=== PATIENT | male | born 1935 | race Caucasian/White ===

== ENCOUNTER 2019-08-07 12:38 | Outpatient (CLI) | payer OTHER, SELFPAY ==
[2019-08-07 13:06] LABS: Add Urine Microscopic? YES; Appearance Urine Clear (Clear); Bilirubin Urine Negative (Negative); Blood Urine Negative (Negative); Color Urine Yellow (Yellow); Glucose Urine UA Negative (Negative); Ketones Urine Trace mg/dL (Negative); Leukocyte Esterase Ur Negative LEU/UL (Negative); Mucus Urine Rare /lpf; Nitrate Urine Negative (Negative); Protein Urine 2+ mg/dL (Negative); RBC Urine 0-2 /hpf (0-2); Specific Grav Ur 1.025 (1.001-1.035); Squamous Epithelial Cell Urine Rare /hpf (Few); Urobilinogen Urine Negative mg/dL (<2.0); WBC Urine 0-3 /hpf
[2019-08-07 13:10] LABS: Creatinine Urine 263.6 mg/dL; Total Protein Urine Random 20 mg/dL
[2019-08-07 13:16] LABS: Albumin Level 4.4 g/dL (3.5-5.1); Blood Urea Nitrogen 35 mg/dL (9-20); Calcium 9.3 mg/dL (8.4-10.2); Carbon Dioxide 25 mmol/L (22-30); Chloride 105 mmol/L (98-107); Estimated Glomerular Filt Rate 32; Glucose 120 mg/dL (75-110); Phosphorus 3.7 mg/dL (2.5-4.5); Potassium 4.9 mmol/L (3.4-5.0); Sodium 137 mmol/L (137-145)
== END 2019-08-07 12:39 | disposition home or self-care (01) ==
PROVIDERS: PCP Internal Medicine; Visit Provider Internal Medicine Nephrology
DX: N18.3 Chronic kidney disease, stage 3 (moderate) (principal)
CPT/HCPCS: 36415; 80069; 81001; 82570; 84156

== ENCOUNTER 2019-09-28 07:53 | Outpatient (CLI) | payer OTHER, SELFPAY ==
[2019-09-28 08:37] LABS: Alanine Aminotransferase 26 U/L (4-50); Albumin Level 4.4 g/dL (3.5-5.1); Alkaline Phosphatase 56 U/L (38-126); Aspartate Amino Transferase 35 U/L (17-59); Bilirubin,Total 0.3 mg/dL (0.2-1.3); Blood Urea Nitrogen 31 mg/dL (9-20); Calcium 9.2 mg/dL (8.4-10.2); Carbon Dioxide 26 mmol/L (22-30); Chloride 105 mmol/L (98-107); Cholesterol 124 mg/dL (0-200); Estimated Glomerular Filt Rate 34; Glucose 121 mg/dL (75-110); HDL Direct 31 mg/dL; Potassium 4.6 mmol/L (3.4-5.0); Sodium 140 mmol/L (137-145); Triglycerides 130 mg/dL (<150); Uric Acid 4.6 mg/dL (3.5-8.5)
[2019-09-28 08:50] LABS: LDL Cholesterol Direct 66 mg/dL
[2019-09-28 08:58] LABS: Hemoglobin A1C 6.5 % (<5.7)
[2019-09-28 11:00] LABS: Creatinine Urine 246.4 mg/dL
[2019-09-28 11:04] LABS: MALB Creatinine Ratio 22.2 mg/g (0-30); Microalbumin Urine Random 54.7 mg/L (0-16.7)
== END 2019-09-28 07:54 | disposition home or self-care (01) ==
PROVIDERS: PCP Internal Medicine; Visit Provider Internal Medicine
DX: M1A.9XX0 Chronic gout, unspecified, without tophus (tophi) (principal); E11.22 Type 2 diabetes mellitus with diabetic chronic kidney disease; N18.3 Chronic kidney disease, stage 3 (moderate); E78.2 Mixed hyperlipidemia
CPT/HCPCS: 36415; 80053; 80061; 82043; 83036; 84550

== ENCOUNTER 2019-12-14 11:56 | Outpatient (CLI) | payer OTHER, SELFPAY ==
[2019-12-14 12:31] LABS: Hematocrit 42.4 % (42.0-52.0); Hemoglobin 13.9 g/dL (14.0-18.0); Mean Corpuscular HGB Conc 32.8 g/dl (32-36); Mean Corpuscular Volume 97.7 fl (80-100); Mean Platelet Volume 10.5 fl (7.4-10.4); Platelet Count Result 202 k/mm3 (150-375); Red Blood Count 4.34 M/mm3 (4.6-6.20); Red Cell Distribution Width 14.1 % (11.5-14.5); White Blood Count 8.7 K/mm3 (4.5-10.0)
[2019-12-14 12:39] LABS: Creatinine Urine 87.6 mg/dL; Total Protein Urine Random 14 mg/dL
[2019-12-14 12:43] LABS: Albumin Level 4.5 g/dL (3.5-5.1); Anion Gap 14.8 mmol/L (7-16); Blood Urea Nitrogen 29 mg/dL (9-20); Calcium 9.3 mg/dL (8.4-10.2); Carbon Dioxide 27 mmol/L (22-30); Chloride 101 mmol/L (98-107); Estimated Glomerular Filt Rate 39; Glucose 141 mg/dL (75-110); Potassium 4.8 mmol/L (3.4-5.0); Sodium 138 mmol/L (137-145)
[2019-12-14 12:54] LABS: Parathyroid Intact 38.8 pg/mL (7.5-53.5)
[2019-12-14 13:19] LABS: Vitamin D 25 Hydroxy 95.5 ng/mL
== END 2019-12-14 11:57 | disposition home or self-care (01) ==
PROVIDERS: PCP Internal Medicine; Visit Provider Internal Medicine Nephrology
DX: N18.3 Chronic kidney disease, stage 3 (moderate) (principal)
CPT/HCPCS: 36415; 80069; 82306; 82570; 83970; 84156; 85027

== ENCOUNTER 2019-12-18 07:38 | Outpatient (CLI) | payer OTHER, SELFPAY ==
[2019-12-18 08:34] LABS: Alanine Aminotransferase 28 U/L (4-50); Albumin Level 4.3 g/dL (3.5-5.1); Alkaline Phosphatase 53 U/L (38-126); Anion Gap 12.5 mmol/L (7-16); Aspartate Amino Transferase 37 U/L (17-59); Bilirubin,Total 0.3 mg/dL (0.2-1.3); Blood Urea Nitrogen 35 mg/dL (9-20); Calcium 9.1 mg/dL (8.4-10.2); Carbon Dioxide 23 mmol/L (22-30); Chloride 106 mmol/L (98-107); Estimated Glomerular Filt Rate 39; Glucose 137 mg/dL (75-110); Potassium 4.5 mmol/L (3.4-5.0); Sodium 137 mmol/L (137-145)
[2019-12-18 10:17] LABS: Creatinine Urine 162.8 mg/dL
[2019-12-18 10:21] LABS: MALB Creatinine Ratio 11.6 mg/g (0-30); Microalbumin Urine Random 18.9 mg/L (0-16.7)
== END 2019-12-18 07:39 | disposition home or self-care (01) ==
PROVIDERS: PCP Internal Medicine; Visit Provider Internal Medicine
DX: E11.22 Type 2 diabetes mellitus with diabetic chronic kidney disease (principal); N18.3 Chronic kidney disease, stage 3 (moderate)
CPT/HCPCS: 36415; 80053; 82043; 83036

== ENCOUNTER 2020-06-03 09:01 | Outpatient (CLI) | payer OTHER, SELFPAY ==
--- NOTE | ~2020-06-03 | XR_ITS ---
EXAMINATION: XR abdomen/kub 1V DATE: 06/03/2020 09:30 INDICATION: Renal calculus. TECHNIQUE: A supine view of the abdomen on 2 radiographs was obtained. COMPARISON: None. FINDINGS: Normal bowel gas pattern. Similar pattern of vascular calcifications and phleboliths in the pelvis. N o interval change in a couple thin linear and curvilinear calcific densities project over the lower p ole of left kidney each measuring approximately 4 mm in maximal dimension which could represent eithe r renal stones or vascular calcifications. Suture line in the right lower quadrant. Mild lumbar dextr ocurvature with moderate spondylosis. IMPRESSION: 1. No interval change in a couple thin linear and curvilinear calcifications at the lower pole of the left kidney which could represent renal stones or vascular calcifications. Reviewed, dictated and finalized at location A. [employer] IMPRESSION: 1. No interval change in a couple thin linear and curvilinear calcifications at the lower pole of the left kidney which could represent renal stones or vascul ar calcifications.
[2020-06-03 10:17] LABS: Albumin Level 4.2 g/dL (3.5-5.1); Anion Gap 3 mmol/L (8-16); Blood Urea Nitrogen 27 mg/dL (9-20); Calcium 9.1 mg/dL (8.4-10.2); Carbon Dioxide 31 mmol/L (22-30); Chloride 104 mmol/L (98-107); Estimated Glomerular Filt Rate 36; Glucose 91 mg/dL (75-110); Phosphorus 3.2 mg/dL (2.5-4.5); Potassium 4.3 mmol/L (3.4-5.0); Sodium 138 mmol/L (137-145)
[2020-06-03 10:18] LABS: Creatinine Urine 153.2 mg/dL; Total Protein Urine Random 14 mg/dL; Ur Ttl Prot Creatinine Ratio 0.09 mg/mg (0-0.20)
[2020-06-03 10:29] LABS: Parathyroid Intact 43.8 pg/mL (7.5-53.5)
[2020-06-03 15:12] LABS: Vitamin D 25 Hydroxy 65.2 ng/mL
== END 2020-06-03 09:02 | disposition home or self-care (01) ==
LOC: ANHIMG 09:10
PROVIDERS: PCP Internal Medicine; Visit Provider Internal Medicine Nephrology
DX: N20.0 Calculus of kidney (principal); N18.30 Chronic kidney disease, stage 3 unspecified
CPT/HCPCS: 36415; 74018; 80069; 82306; 82570; 83970; 84156; 84550

== ENCOUNTER 2020-06-17 09:14 | Outpatient (CLI) | payer OTHER, SELFPAY ==
[2020-06-17 11:57] LABS: Hemoglobin A1C 6.2 % (<5.7)
== END 2020-06-17 09:15 | disposition home or self-care (01) ==
PROVIDERS: PCP Internal Medicine; Visit Provider Internal Medicine
DX: E11.22 Type 2 diabetes mellitus with diabetic chronic kidney disease (principal); I12.9 Hypertensive chronic kidney disease with stage 1 through stage 4 chronic kidney disease, or unspecified chronic kidney disease; N18.30 Chronic kidney disease, stage 3 unspecified
CPT/HCPCS: 36415; 83036; 84443

== ENCOUNTER 2020-08-04 16:01 | Outpatient (CLI) | payer OTHER, SELFPAY ==
[2020-08-04 16:39] LABS: Alanine Aminotransferase 29 U/L (4-50); Aspartate Amino Transferase 36 U/L (17-59)
== END 2020-08-04 16:02 | disposition home or self-care (01) ==
PROVIDERS: PCP Internal Medicine; Visit Provider Podiatrist Foot & Ankle Surgery
DX: B35.1 Tinea unguium (principal)
CPT/HCPCS: 36415; 84450; 84460

== ENCOUNTER 2020-12-09 11:42 | Outpatient (CLI) | payer OTHER, SELFPAY ==
[2020-12-09 12:15] LABS: Hematocrit 36.8 % (42.0-52.0); Mean Corpuscular HGB Conc 32.6 g/dl (32-36); Mean Corpuscular Hemoglobin 31.9 pg (26-34); Mean Corpuscular Volume 97.9 fl (80-100); Mean Platelet Volume 10.1 fl (7.4-10.4); Platelet Count Result 181 k/mm3 (150-375); Red Blood Count 3.76 M/mm3 (4.6-6.20); Red Cell Distribution Width 14.1 % (11.5-14.5); White Blood Count 8.3 K/mm3 (4.5-10.0)
[2020-12-09 12:21] LABS: Creatinine Urine 42.3 mg/dL; Total Protein Urine Random 22 mg/dL; Ur Ttl Prot Creatinine Ratio 0.52 mg/mg (0-0.20)
[2020-12-09 12:25] LABS: Albumin Level 4.6 g/dL (3.5-5.1); Anion Gap 12 mmol/L (8-16); Blood Urea Nitrogen 40 mg/dL (9-20); Calcium 9.2 mg/dL (8.4-10.2); Carbon Dioxide 21 mmol/L (22-30); Chloride 107 mmol/L (98-107); Estimated Glomerular Filt Rate 22; Glucose 128 mg/dL (65-110); Phosphorus 3.4 mg/dL (2.5-4.5); Potassium 4.7 mmol/L (3.4-5.0); Sodium 140 mmol/L (137-145)
[2020-12-09 12:36] LABS: Parathyroid Intact 65.9 pg/mL (7.5-53.5)
== END 2020-12-09 11:43 | disposition home or self-care (01) ==
LOC: ANHLAB 11:45
PROVIDERS: PCP Internal Medicine; Visit Provider Internal Medicine Nephrology
DX: N18.32 Chronic kidney disease, stage 3b (principal)
CPT/HCPCS: 36415; 80069; 82570; 83970; 84156; 85027

== ENCOUNTER 2020-12-24 10:47 | Outpatient (CLI) | payer OTHER, SELFPAY ==
[2020-12-24 11:52] LABS: Add Urine Microscopic? YES; Appearance Urine Clear (Clear); Bilirubin Urine Negative (Negative); Blood Urine Negative (Negative); Color Urine Yellow (Yellow); Glucose Urine UA Negative (Negative); Ketones Urine Negative (Negative); Leukocyte Esterase Ur Negative LEU/UL (NEGATIVE); Nitrate Urine Negative (Negative); Protein Urine 1+ mg/dL (Negative); RBC Urine 0-2 /hpf (0-2); Specific Grav Ur 1.015 (1.001-1.035); Urobilinogen Urine Negative mg/dL (<2.0); WBC Urine 0-3 /hpf (0-3)
[2020-12-24 12:00] LABS: Albumin Level 4.4 g/dL (3.5-5.1); Anion Gap 10 mmol/L (8-16); Blood Urea Nitrogen 37 mg/dL (9-20); Calcium 9.3 mg/dL (8.4-10.2); Carbon Dioxide 23 mmol/L (22-30); Chloride 107 mmol/L (98-107); Creatine Kinase 243 U/L (55-170); Estimated Glomerular Filt Rate 22; Glucose 130 mg/dL (65-110); Phosphorus 3.5 mg/dL (2.5-4.5); Potassium 4.6 mmol/L (3.4-5.0); Sodium 140 mmol/L (137-145)
[2020-12-24 22:15] LABS: Creatinine Urine 114.2 mg/dL
[2020-12-24 22:34] LABS: Sodium Urine Random 54 meq/L
== END 2020-12-24 10:48 | disposition home or self-care (01) ==
PROVIDERS: PCP Internal Medicine; Visit Provider Internal Medicine Nephrology
DX: N18.32 Chronic kidney disease, stage 3b (principal)
CPT/HCPCS: 36415; 80069; 81001; 82550; 82570; 84300

== ENCOUNTER 2020-12-25 07:51 | Outpatient (CLI) | payer OTHER, SELFPAY ==
[2020-12-25 09:01] LABS: Hematocrit 36.6 % (42.0-52.0); Hemoglobin 12.1 g/dL (14.0-18.0); Mean Corpuscular HGB Conc 33.1 g/dl (32-36); Mean Corpuscular Hemoglobin 32.4 pg (26-34); Mean Corpuscular Volume 97.9 fl (80-100); Mean Platelet Volume 10.3 fl (7.4-10.4); Platelet Count Result 190 k/mm3 (150-375); Red Blood Count 3.74 M/mm3 (4.6-6.20); Red Cell Distribution Width 13.6 % (11.5-14.5); White Blood Count 8.6 K/mm3 (4.5-10.0)
[2020-12-25 09:10] LABS: Hemoglobin A1C 6.3 % (<5.7)
[2020-12-25 10:43] LABS: Alanine Aminotransferase 34 U/L (4-50); Albumin Level 4.4 g/dL (3.5-5.1); Alkaline Phosphatase 60 U/L (38-126); Anion Gap 10 mmol/L (8-16); Aspartate Amino Transferase 44 U/L (17-59); Bilirubin,Total 0.5 mg/dL (0.2-1.3); Blood Urea Nitrogen 38 mg/dL (9-20); Calcium 9.4 mg/dL (8.4-10.2); Carbon Dioxide 20 mmol/L (22-30); Chloride 109 mmol/L (98-107); Estimated Glomerular Filt Rate 24; Glucose 124 mg/dL (65-110); Potassium 4.8 mmol/L (3.4-5.0); Sodium 139 mmol/L (137-145)
[2020-12-25 11:00] LABS: Creatinine Urine 109.3 mg/dL
[2020-12-25 11:04] LABS: MALB Creatinine Ratio 51.3 mg/g (0-30); Microalbumin Urine Random 56.1 mg/L (0-16.7)
[2020-12-25 12:00] LABS: Folic Acid > 20.0 ng/mL (2.76->20)
== END 2020-12-25 07:52 | disposition home or self-care (01) ==
LOC: ANHLAB 07:52
PROVIDERS: PCP Internal Medicine; Visit Provider Internal Medicine
DX: D64.9 Anemia, unspecified (principal); E11.22 Type 2 diabetes mellitus with diabetic chronic kidney disease; I12.9 Hypertensive chronic kidney disease with stage 1 through stage 4 chronic kidney disease, or unspecified chronic kidney disease; N18.30 Chronic kidney disease, stage 3 unspecified
CPT/HCPCS: 36415; 80053; 82043; 82607; 82746; 83036; 85027

== ENCOUNTER 2021-01-02 13:50 | Outpatient (CLI) | payer OTHER, SELFPAY ==
--- NOTE | ~2021-01-02 | US_ITS ---
EXAMINATION: US arterial ankle brachial ind DATE: 01/02/2021 15:29 INDICATION: Diabetic with hypercholesterolemia presenting with decreased pulses in the lower limbs. TECHNIQUE: Segmental pressures and plethysmographic and Doppler waveforms of the brachial and lower e xtremity arteries were obtained. COMPARISON: None. FINDINGS: Right and left brachial artery pressures of 97 mm Hg and 98 mm Hg, respectively, are concordant (norm al difference <= 30 mmHg). The right ankle-brachial index (CINDY) is 1.62 (normal >= 0.9-1.0). The right great toe-brachial index (TBI) is 0.95 (normal >= 0.65). Arterial Doppler waveforms are biphasic with brisk systolic upstrokes at both the right posterior tibial and dorsalis pedis arteries. The left CINDY is 1.56. The left TBI is 0.84. Arterial Doppler waveforms are biphasic with brisk systol ic upstrokes of both the left posterior tibial and dorsalis pedis arteries. IMPRESSION: 1. No significant arterial occlusive disease to either lower limb with normal bilateral ABIs and TBI' s. Reviewed, dictated and finalized at location A. IMPRESSION: 1. No significant arterial occlusive disease to either lower limb with normal b ilateral ABIs and TBI's.
== END 2021-01-02 13:51 | disposition home or self-care (01) ==
PROVIDERS: PCP Internal Medicine; Visit Provider Internal Medicine
DX: R09.89 Other specified symptoms and signs involving the circulatory and respiratory systems (principal)
CPT/HCPCS: 93922

== ENCOUNTER → 2021-01-06 02:44 | Outpatient (CLI) | payer OTHER, SELFPAY ==
[2021-01-06 19:41] LABS: SARS-CoV-2 RNA PCR Negative
== END ==
PROVIDERS: PCP Internal Medicine; Visit Provider Internal Medicine
DX: R68.89 Other general symptoms and signs (principal); Z20.822 Contact with and (suspected) exposure to COVID-19
CPT/HCPCS: C9803; U0003; U0005

== ENCOUNTER 2021-01-13 16:52 | Outpatient (CLI) | payer OTHER, SELFPAY ==
--- NOTE | ~2021-01-13 | US_ITS ---
EXAMINATION: US renal BI DATE: 01/13/2021 17:21 INDICATION: Chronic kidney disease. TECHNIQUE: Multiple ultrasound grayscale images of the kidneys were obtained. COMPARISON: Ultrasound 02/14/2019 FINDINGS: The right kidney measures 10.0 x 5.3 x 5.0 cm. The left kidney measures 9.8 x 4.7 x 5.1 cm. The kidne ys demonstrate normal parenchymal echogenicity. There are cysts in the kidneys measuring up to 10 mm on the right. There is no hydronephrosis. The bladder is normal. The prostate is enlarged. IMPRESSION: 1. Normal kidney sizes. No hydronephrosis. Reviewed, dictated and finalized at location A.
== END 2021-01-13 16:53 | disposition home or self-care (01) ==
PROVIDERS: PCP Internal Medicine; Visit Provider Internal Medicine Nephrology
DX: N18.30 Chronic kidney disease, stage 3 unspecified (principal)
CPT/HCPCS: 76775

== ENCOUNTER 2021-04-04 11:11 | Outpatient (CLI) | payer OTHER, SELFPAY ==
[2021-04-04 12:25] LABS: Hematocrit 39.2 % (42.0-52.0); Hemoglobin 13.3 g/dL (14.0-18.0); Mean Corpuscular HGB Conc 33.9 g/dl (32-36); Mean Corpuscular Volume 97.3 fl (80-100); Mean Platelet Volume 10.3 fl (7.4-10.4); Platelet Count Result 204 k/mm3 (150-375); Red Blood Count 4.03 M/mm3 (4.6-6.20); Red Cell Distribution Width 12.8 % (11.5-14.5); White Blood Count 8.8 K/mm3 (4.5-10.0)
[2021-04-04 12:37] LABS: Albumin Level 4.4 g/dL (3.5-5.1); Anion Gap 10 mmol/L (8-16); Blood Urea Nitrogen 40 mg/dL (9-20); Calcium 9.3 mg/dL (8.4-10.2); Carbon Dioxide 26 mmol/L (22-30); Chloride 103 mmol/L (98-107); Estimated Glomerular Filt Rate 27; Glucose 122 mg/dL (65-110); Phosphorus 3.8 mg/dL (2.5-4.5); Potassium 4.7 mmol/L (3.4-5.0); Sodium 139 mmol/L (137-145)
[2021-04-04 12:39] LABS: Creatinine Urine 142.3 mg/dL; Total Protein Urine Random 18 mg/dL; Ur Ttl Prot Creatinine Ratio 0.13 mg/mg (0-0.20)
[2021-04-04 12:48] LABS: Parathyroid Intact 57.3 pg/mL (7.5-53.5)
== END 2021-04-04 11:12 | disposition home or self-care (01) ==
LOC: ANHLAB 11:16
PROVIDERS: PCP Internal Medicine; Visit Provider Internal Medicine Nephrology
DX: N18.32 Chronic kidney disease, stage 3b (principal)
CPT/HCPCS: 36415; 80069; 82570; 83970; 84156; 85027

== ENCOUNTER 2021-06-30 08:27 | Outpatient (CLI) | payer OTHER, SELFPAY ==
[2021-06-30 09:16] LABS: Basophils Absolute Auto 0.1 K/mm3 (0.0-0.1); Basophils Percent Auto 0.5 % (0.2-1.2); Eosinophils Absolute Auto 0.2 K/mm3 (0-0.3); Eosinophils Percent Auto 2.5 % (0-4.4); Hematocrit 43.6 % (42.0-52.0); Hemoglobin 14.2 g/dL (14.0-18.0); Immature Granulocyte Absolute 0.03 K/mm3 (0.00-0.031); Immature Granulocyte Percent A 0.3 % (0-0.5); Lymphocytes Absolute Auto 2.31 K/mm3 (0.9-3.2); Lymphocytes Percent Auto 24.1 % (18.3-44.2); Mean Corpuscular HGB Conc 32.6 g/dl (32-36); Mean Corpuscular Hemoglobin 32.1 pg (26-34); Mean Corpuscular Volume 98.4 fl (80-100); Mean Platelet Volume 10.6 fl (7.4-10.4); Monocytes Absolute Auto 0.6 K/mm3 (0.1-0.6); Monocytes Percent Auto 6.6 % (2.6-8.5); Neutrophils Absolute Auto 6.3 K/mm3 (1.3-6.7); Platelet Count Result 192 k/mm3 (150-375); Red Blood Count 4.43 M/mm3 (4.6-6.20); Red Cell Distribution Width 13.5 % (11.5-14.5); White Blood Count 9.6 K/mm3 (4.5-10.0)
[2021-06-30 09:35] LABS: Hemoglobin A1C 7.1 % (<5.7)
[2021-06-30 09:38] LABS: LDL Cholesterol Direct 65 mg/dL
[2021-06-30 09:47] LABS: Alanine Aminotransferase 31 U/L (4-50); Albumin Level 4.5 g/dL (3.5-5.1); Alkaline Phosphatase 67 U/L (38-126); Anion Gap 10 mmol/L (8-16); Aspartate Amino Transferase 37 U/L (17-59); Bilirubin,Total 0.6 mg/dL (0.2-1.3); Blood Urea Nitrogen 35 mg/dL (9-20); Calcium 8.9 mg/dL (8.4-10.2); Carbon Dioxide 26 mmol/L (22-30); Chloride 105 mmol/L (98-107); Cholesterol 147 mg/dL (0-200); Estimated Glomerular Filt Rate 22; Glucose 175 mg/dL (65-110); HDL Direct 31 mg/dL; Potassium 4.8 mmol/L (3.4-5.0); Sodium 141 mmol/L (137-145); Triglycerides 302 mg/dL (<150)
[2021-06-30 09:56] LABS: Vitamin D 25 Hydroxy 59.1 ng/mL
[2021-06-30 10:44] LABS: Creatinine Urine 206.6 mg/dL
[2021-06-30 10:45] LABS: MALB Creatinine Ratio 36.6 mg/g (0-30); Microalbumin Urine Random 75.6 mg/L (0-16.7)
== END 2021-06-30 08:28 | disposition home or self-care (01) ==
LOC: ANHLAB 08:29
PROVIDERS: PCP Internal Medicine; Visit Provider Internal Medicine
DX: E11.22 Type 2 diabetes mellitus with diabetic chronic kidney disease (principal); D64.9 Anemia, unspecified; E11.69 Type 2 diabetes mellitus with other specified complication; E53.8 Deficiency of other specified B group vitamins; E78.2 Mixed hyperlipidemia; I12.9 Hypertensive chronic kidney disease with stage 1 through stage 4 chronic kidney disease, or unspecified chronic kidney disease; N18.30 Chronic kidney disease, stage 3 unspecified
CPT/HCPCS: 36415; 80053; 80061; 82043; 82306; 83036; 83970; 84443; 85025

== ENCOUNTER 2021-07-13 09:48 | Outpatient (CLI) | payer OTHER, SELFPAY ==
[2021-07-13 10:27] LABS: Anion Gap 10 mmol/L (8-16); Blood Urea Nitrogen 41 mg/dL (9-20); Calcium 8.8 mg/dL (8.4-10.2); Carbon Dioxide 24 mmol/L (22-30); Chloride 105 mmol/L (98-107); Estimated Glomerular Filt Rate 25; Glucose 107 mg/dL (65-110); Potassium 4.9 mmol/L (3.4-5.0); Sodium 139 mmol/L (137-145)
== END 2021-07-13 09:49 | disposition home or self-care (01) ==
PROVIDERS: PCP Internal Medicine; Visit Provider Internal Medicine
DX: N18.32 Chronic kidney disease, stage 3b (principal)
CPT/HCPCS: 36415; 80048

== ENCOUNTER → 2021-07-23 02:18 | Outpatient (CLI) | payer OTHER, SELFPAY ==
[2021-07-23 11:06] LABS: Influenza A QL RT-PCR Negative (Negative); Influenza B QL RT-PCR Negative (Negative); SARS-CoV-2 RNA PCR Negative
== END ==
PROVIDERS: PCP Internal Medicine; Visit Provider Internal Medicine
DX: R68.89 Other general symptoms and signs (principal); Z20.822 Contact with and (suspected) exposure to COVID-19
CPT/HCPCS: 87502; C9803; U0003; U0005

== ENCOUNTER 2021-09-16 14:21 | Outpatient (CLI) | payer OTHER, SELFPAY ==
[2021-09-16 15:18] LABS: Hematocrit 40.4 % (42.0-52.0); Mean Corpuscular HGB Conc 32.2 g/dl (32-36); Mean Corpuscular Hemoglobin 32.2 pg (26-34); Mean Platelet Volume 10.3 fl (7.4-10.4); Platelet Count Result 176 k/mm3 (150-375); Red Blood Count 4.04 M/mm3 (4.6-6.20); Red Cell Distribution Width 13.4 % (11.5-14.5); White Blood Count 8.7 K/mm3 (4.5-10.0)
[2021-09-16 15:37] LABS: Albumin Level 4.1 g/dL (3.5-5.1); Anion Gap 7 mmol/L (8-16); Blood Urea Nitrogen 46 mg/dL (9-20); Calcium 8.8 mg/dL (8.4-10.2); Carbon Dioxide 27 mmol/L (22-30); Chloride 101 mmol/L (98-107); Estimated Glomerular Filt Rate 26; Glucose 129 mg/dL (65-110); Phosphorus 3.9 mg/dL (2.5-4.5); Potassium 4.5 mmol/L (3.4-5.0); Sodium 135 mmol/L (137-145)
[2021-09-16 15:49] LABS: Parathyroid Intact 77.1 pg/mL (7.5-53.5)
[2021-09-16 16:07] LABS: Creatinine Urine 51.4 mg/dL; Total Protein Urine Random 12 mg/dL; Ur Ttl Prot Creatinine Ratio 0.23 mg/mg (0-0.20)
== END 2021-09-16 14:22 | disposition home or self-care (01) ==
LOC: ANHLAB 14:37
PROVIDERS: PCP Internal Medicine; Visit Provider Internal Medicine Nephrology
DX: N18.4 Chronic kidney disease, stage 4 (severe) (principal); R80.1 Persistent proteinuria, unspecified
CPT/HCPCS: 36415; 80069; 82570; 83970; 84156; 85027

== ENCOUNTER 2021-10-09 11:42 | Outpatient (CLI) | payer OTHER, SELFPAY ==
[2021-10-09 13:24] LABS: Alanine Aminotransferase 52 U/L (6-50); Alkaline Phosphatase 48 U/L (38-126); Anion Gap 8 mmol/L (8-16); Aspartate Amino Transferase 50 U/L (17-59); Bilirubin,Total 0.5 mg/dL (0.2-1.3); Blood Urea Nitrogen 34 mg/dL (9-20); Calcium 8.6 mg/dL (8.4-10.2); Carbon Dioxide 23 mmol/L (22-30); Chloride 107 mmol/L (98-107); Cholesterol 101 mg/dL (0-200); Estimated Glomerular Filt Rate 32; Glucose 113 mg/dL (65-110); HDL Direct 32 mg/dL; Potassium 4.6 mmol/L (3.4-5.0); Sodium 138 mmol/L (137-145); Triglycerides 104 mg/dL (<150)
[2021-10-09 13:35] LABS: LDL Cholesterol Direct 43 mg/dL
[2021-10-09 13:38] LABS: Hemoglobin A1C 6.6 % (<5.7)
[2021-10-09 13:45] LABS: Creatinine Urine 69.6 mg/dL
[2021-10-09 14:13] LABS: MALB Creatinine Ratio 33.9 mg/g (0-30); Microalbumin Urine Random 23.6 mg/L (0-16.7)
== END 2021-10-09 11:43 | disposition home or self-care (01) ==
PROVIDERS: PCP Internal Medicine; Visit Provider Internal Medicine
DX: E78.2 Mixed hyperlipidemia (principal); I12.9 Hypertensive chronic kidney disease with stage 1 through stage 4 chronic kidney disease, or unspecified chronic kidney disease; N18.30 Chronic kidney disease, stage 3 unspecified; E11.22 Type 2 diabetes mellitus with diabetic chronic kidney disease
CPT/HCPCS: 36415; 80053; 80061; 82043; 83036

== ENCOUNTER 2022-03-08 09:50 | Outpatient (CLI) | payer OTHER, SELFPAY ==
--- NOTE | ~2022-03-08 | XR_ITS ---
XR foot LT min 3V DATE: 03/08/2022 10:17 INDICATION: Medial foot bruising. Pain while walking. TECHNIQUE: 4 views COMPARISON: None FINDINGS: There is polyarticular osteoarthritis, particularly at the first metatarsophalangeal joint where there is near-complete obliteration of joint space and mild spurring. There is osteoarthritic i nvolvement at the tibiotalar, tarsal metatarsal and to a lesser extent interphalangeal joints as well . Prominent posterior calcaneal spur. There is prominent calcification of the posterior tibial artery as well as some prominent metatarsal artery calcifications, likely indicating diabetes. No fracture or dislocation, periosteal reaction or bone destruction is detected. IMPRESSION: Polyarticular osteoarthritis Extensive arterial calcifications, likely due to diabetes Reviewed, dictated and finalized at location A.
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
== END 2022-03-08 09:51 | disposition home or self-care (01) ==
PROVIDERS: PCP Internal Medicine; Visit Provider Internal Medicine
DX: R07.81 Pleurodynia (principal); M19.072 Primary osteoarthritis, left ankle and foot
CPT/HCPCS: 71101; 73630

== ENCOUNTER 2022-03-09 09:19 | Outpatient (CLI) | payer OTHER, SELFPAY ==
[2022-03-09 09:40] LABS: Hematocrit 34.7 % (42.0-52.0); Hemoglobin 11.5 g/dL (14.0-18.0); Mean Corpuscular HGB Conc 33.1 g/dl (32-36); Mean Corpuscular Hemoglobin 33.1 pg (26-34); Mean Platelet Volume 9.1 fl (7.4-10.4); Platelet Count Result 239 k/mm3 (150-375); Red Blood Count 3.47 M/mm3 (4.6-6.20); Red Cell Distribution Width 13.9 % (11.5-14.5); White Blood Count 9.2 K/mm3 (4.5-10.0)
[2022-03-09 09:48] LABS: Creatinine Urine 162.8 mg/dL; Total Protein Urine Random 12 mg/dL; Ur Ttl Prot Creatinine Ratio 0.07 mg/mg (0-0.20)
[2022-03-09 09:51] LABS: Albumin Level 4.1 g/dL (3.5-5.1); Anion Gap 13 mmol/L (8-16); Blood Urea Nitrogen 32 mg/dL (9-20); Calcium 8.4 mg/dL (8.4-10.2); Carbon Dioxide 23 mmol/L (22-30); Chloride 103 mmol/L (98-107); Estimated Glomerular Filt Rate 29; Glucose 200 mg/dL (65-110); Phosphorus 3.5 mg/dL (2.5-4.5); Potassium 4.3 mmol/L (3.4-5.0); Sodium 139 mmol/L (137-145)
[2022-03-09 10:02] LABS: Parathyroid Intact 51.8 pg/mL (7.5-53.5)
== END 2022-03-09 09:20 | disposition home or self-care (01) ==
LOC: ANHLAB 09:23
PROVIDERS: PCP Internal Medicine; Visit Provider Internal Medicine Nephrology
DX: N18.4 Chronic kidney disease, stage 4 (severe) (principal)
CPT/HCPCS: 36415; 80069; 82570; 83970; 84156; 85027

== ENCOUNTER 2022-04-05 07:47 | Outpatient (CLI) | payer OTHER, SELFPAY ==
[2022-04-05 08:22] LABS: Anion Gap 8 mmol/L (8-16); Blood Urea Nitrogen 29 mg/dL (9-20); Calcium 8.5 mg/dL (8.4-10.2); Carbon Dioxide 23 mmol/L (22-30); Chloride 107 mmol/L (98-107); Cholesterol 114 mg/dL (0-200); Estimated Glomerular Filt Rate 32; Glucose 145 mg/dL (65-110); HDL Direct 41 mg/dL; Potassium 4.6 mmol/L (3.4-5.0); Sodium 138 mmol/L (137-145); Triglycerides 117 mg/dL (<150)
[2022-04-05 08:33] LABS: LDL Cholesterol Direct 50 mg/dL
[2022-04-05 09:39] LABS: Hemoglobin A1C 6.8 % (<5.7)
== END 2022-04-05 07:48 | disposition home or self-care (01) ==
PROVIDERS: PCP Internal Medicine; Visit Provider Internal Medicine
DX: E78.5 Hyperlipidemia, unspecified (principal); E11.22 Type 2 diabetes mellitus with diabetic chronic kidney disease; I12.9 Hypertensive chronic kidney disease with stage 1 through stage 4 chronic kidney disease, or unspecified chronic kidney disease; N18.30 Chronic kidney disease, stage 3 unspecified
CPT/HCPCS: 36415; 80048; 80061; 83036

== ENCOUNTER 2022-07-09 07:11 | Outpatient (CLI) | payer OTHER, SELFPAY ==
[2022-07-09 07:47] LABS: Hematocrit 42.3 % (42.0-52.0); Hemoglobin 13.9 g/dL (14.0-18.0); Mean Corpuscular HGB Conc 32.9 g/dl (32-36); Mean Corpuscular Volume 97.2 fl (80-100); Mean Platelet Volume 9.8 fl (7.4-10.4); Platelet Count Result 160 k/mm3 (150-375); Red Blood Count 4.35 M/mm3 (4.6-6.20); Red Cell Distribution Width 13.4 % (11.5-14.5); White Blood Count 7.4 K/mm3 (4.5-10.0)
[2022-07-09 07:59] LABS: Albumin Level 4.2 g/dL (3.5-5.1); Anion Gap 6 mmol/L (8-16); Blood Urea Nitrogen 35 mg/dL (9-20); Calcium 8.5 mg/dL (8.4-10.2); Carbon Dioxide 26 mmol/L (22-30); Chloride 102 mmol/L (98-107); Estimated Glomerular Filt Rate 36; Glucose 212 mg/dL (65-110); Potassium 4.8 mmol/L (3.4-5.0); Sodium 134 mmol/L (137-145)
[2022-07-09 09:17] LABS: Creatinine Urine 135.1 mg/dL; Total Protein Urine Random 15 mg/dL; Ur Ttl Prot Creatinine Ratio 0.11 mg/mg (0-0.20)
[2022-07-09 09:33] LABS: Parathyroid Intact 70.8 pg/mL (7.5-53.5)
== END 2022-07-09 07:12 | disposition home or self-care (01) ==
PROVIDERS: PCP Internal Medicine; Visit Provider Internal Medicine Nephrology
DX: N18.4 Chronic kidney disease, stage 4 (severe) (principal)
CPT/HCPCS: 36415; 80069; 82570; 83970; 84156; 85027

== ENCOUNTER 2022-10-13 08:07 | Outpatient (CLI) | payer OTHER, SELFPAY ==
[2022-10-13 08:41] LABS: Alanine Aminotransferase 53 U/L (6-50); Albumin Level 4.3 g/dL (3.5-5.1); Alkaline Phosphatase 64 U/L (38-126); Anion Gap 7 mmol/L (8-16); Aspartate Amino Transferase 50 U/L (17-59); Bilirubin,Total 0.8 mg/dL (0.2-1.3); Blood Urea Nitrogen 27 mg/dL (9-20); Calcium 8.5 mg/dL (8.4-10.2); Carbon Dioxide 27 mmol/L (22-30); Chloride 104 mmol/L (98-107); Cholesterol 102 mg/dL (0-200); Estimated Glomerular Filt Rate 34; Glucose 174 mg/dL (65-110); HDL Direct 33 mg/dL; Potassium 4.7 mmol/L (3.4-5.0); Sodium 138 mmol/L (137-145); Triglycerides 115 mg/dL (<150); Uric Acid 5.1 mg/dL (3.5-8.5)
[2022-10-13 08:52] LABS: LDL Cholesterol Direct 50 mg/dL
[2022-10-13 10:51] LABS: Hemoglobin A1C 7.3 % (<5.7)
== END 2022-10-13 08:08 | disposition home or self-care (01) ==
LOC: ANHLAB 08:09
PROVIDERS: PCP Family Medicine; Visit Provider Family Medicine
DX: E11.69 Type 2 diabetes mellitus with other specified complication (principal); E78.5 Hyperlipidemia, unspecified; E11.22 Type 2 diabetes mellitus with diabetic chronic kidney disease; M10.9 Gout, unspecified; E53.8 Deficiency of other specified B group vitamins; I12.9 Hypertensive chronic kidney disease with stage 1 through stage 4 chronic kidney disease, or unspecified chronic kidney disease; N18.30 Chronic kidney disease, stage 3 unspecified
CPT/HCPCS: 36415; 80053; 80061; 82607; 83036; 84550

== ENCOUNTER 2022-11-10 14:33 | Outpatient (CLI) | payer OTHER, SELFPAY ==
[2022-11-10 15:14] LABS: Hematocrit 40.8 % (42.0-52.0); Hemoglobin 13.7 g/dL (14.0-18.0); Mean Corpuscular HGB Conc 33.6 g/dl (32-36); Mean Corpuscular Hemoglobin 32.8 pg (26-34); Mean Corpuscular Volume 97.6 fl (80-100); Mean Platelet Volume 10.1 fl (7.4-10.4); Platelet Count Result 158 k/mm3 (150-375); Red Blood Count 4.18 M/mm3 (4.6-6.20); Red Cell Distribution Width 13.4 % (11.5-14.5); White Blood Count 7.7 K/mm3 (4.5-10.0)
[2022-11-10 15:24] LABS: Albumin Level 4.2 g/dL (3.5-5.1); Anion Gap 8 mmol/L (8-16); Blood Urea Nitrogen 25 mg/dL (9-20); Calcium 8.6 mg/dL (8.4-10.2); Carbon Dioxide 26 mmol/L (22-30); Chloride 103 mmol/L (98-107); Estimated Glomerular Filt Rate 36; Glucose 175 mg/dL (65-110); Phosphorus 4.1 mg/dL (2.5-4.5); Potassium 4.4 mmol/L (3.4-5.0); Sodium 137 mmol/L (137-145)
[2022-11-10 15:25] LABS: Creatinine Urine 71.4 mg/dL; Total Protein Urine Random 19 mg/dL; Ur Ttl Prot Creatinine Ratio 0.27 mg/mg (0-0.20)
[2022-11-10 15:36] LABS: Parathyroid Intact 80.4 pg/mL (7.5-53.5)
== END 2022-11-10 14:34 | disposition home or self-care (01) ==
PROVIDERS: PCP Family Medicine; Visit Provider Internal Medicine Nephrology
DX: N18.4 Chronic kidney disease, stage 4 (severe) (principal); E21.1 Secondary hyperparathyroidism, not elsewhere classified
CPT/HCPCS: 36415; 80069; 82570; 83970; 84156; 85027

== ENCOUNTER 2022-12-08 08:13 | Outpatient (CLI) | payer OTHER, SELFPAY ==
--- NOTE | ~2022-12-08 | XR_ITS ---
Right Knee Technique: AP, lateral, and sunrise views were obtained. Clinical History: Pain Findings: No fracture or dislocation is seen. Osseous alignment is anatomic. There is mild to moderat e degenerative change of the medial compartment. There is minimal degenerative change of the lateral and patellofemoral compartments. Chondrocalcinosis of the menisci noted. No joint effusion is seen. Impression: Tricompartmental degenerative change, as above, worst in the medial compartment. Chondrocalcinosis of the menisci. Reviewed, dictated and finalized at location M. Impression: Tricompartmental degenerative change, as above, worst in the medial compartment . Chondrocalcinosis of the menisci.
== END 2022-12-08 08:14 | disposition home or self-care (01) ==
LOC: ANHIMG 08:16
PROVIDERS: PCP Family Medicine; Visit Provider Nurse Practitioner Family
DX: M17.11 Unilateral primary osteoarthritis, right knee (principal)
CPT/HCPCS: 73564

== ENCOUNTER 2022-12-14 14:14 | Outpatient (CLI) | payer OTHER, SELFPAY ==
[2022-12-14 14:59] LABS: Anion Gap 6 mmol/L (8-16); Blood Urea Nitrogen 35 mg/dL (9-20); Calcium 8.7 mg/dL (8.4-10.2); Carbon Dioxide 25 mmol/L (22-30); Chloride 103 mmol/L (98-107); Estimated Glomerular Filt Rate 29; Glucose 143 mg/dL (65-110); Phosphorus 4.3 mg/dL (2.5-4.5); Potassium 4.4 mmol/L (3.4-5.0); Sodium 134 mmol/L (137-145)
== END 2022-12-14 14:15 | disposition home or self-care (01) ==
PROVIDERS: PCP Family Medicine; Visit Provider Internal Medicine Nephrology
DX: N18.4 Chronic kidney disease, stage 4 (severe) (principal)
CPT/HCPCS: 36415; 80069